=== PATIENT | female | born 1975 | race Caucasian/White ===

== ENCOUNTER 2022-03-20 01:10 | Emergency (ER) | payer OTHER, MEDICARE, MEDICAID ==
[2022-03-20] MEDS ORDERED: Acetaminophen 500 MG TAB ONE (01:57)
[2022-03-20] MEDS ORDERED: predniSONE 20 MG TAB ONE (01:57)
== END 2022-03-20 02:00 | disposition home or self-care (01) ==
LOC: BURERS 01:10
DX: S80.11XA Contusion of right lower leg, initial encounter (principal); G62.9 Polyneuropathy, unspecified; I10 Essential (primary) hypertension; E78.5 Hyperlipidemia, unspecified; E78.00 Pure hypercholesterolemia, unspecified; D64.9 Anemia, unspecified; Z79.01 Long term (current) use of anticoagulants; Z79.51 Long term (current) use of inhaled steroids; Z79.899 Other long term (current) drug therapy; Z87.891 Personal history of nicotine dependence; Z86.73 Personal history of transient ischemic attack (TIA), and cerebral infarction without residual deficits; W54.1XXA Struck by dog, initial encounter
CPT/HCPCS: 99283; J7512